=== PATIENT | female | born 1990 | race African-American/Black ===

== ENCOUNTER 2024-02-07 13:22 | Emergency (ER) | payer OTHER ==
[2024-02-07 13:29] VITALS: BP 119/66; PULSE 78; RESP 18; TEMP 97.4; BMI 25.8
[2024-02-07 16:47] LABS: BASO % 0.5 % (0-2.0); EOS % 1.1 % (0-4.5); HEMATOCRIT 32.4 % (32.4-45.2); HEMOGLOBIN 10.6 GM/dL (10.7-15.3); LYMPH % 32.8 % (8-40); MCH 26.8 pg (25.7-33.7); MCHC 32.9 g/dl (32.0-36.0); MEAN CELL VOLUME 81.6 fl (80-96); MEAN PLT VOLUME 7.1 fl (7.5-11.1); MONO % 7.9 % (3.8-10.2); NEUT % 57.7 % (42.8-82.8); PLATELET COUNT 231 10^3/uL (134-434); RBC 3.97 M/mm3 (3.60-5.2); WHITE BLOOD COUNT 6.5 K/mm3 (4.0-10.0)
[2024-02-07 17:00] LABS: CALCIUM 8.9 mg/dL (8.5-10.1)
[2024-02-07 17:01] LABS: ALBUMIN 3.5 g/dl (3.4-5.0); BLOOD UREA NITROGEN 11.3 mg/dL (7-18)
[2024-02-07 17:04] LABS: CREATININE 0.6 mg/dL (0.55-1.3)
[2024-02-07 17:06] LABS: BILIRUBIN,TOTAL 0.3 mg/dL (0.2-1)
[2024-02-07 18:00] LABS: PH,URINE 7.5 (5.0-8.0); URINE APPEARANCE CLEAR; URINE BILIRUBIN NEGATIVE (NEGATIVE); URINE COLOR YELLOW; URINE GLUCOSE (UA) NEGATIVE (NEGATIVE); URINE KETONE TRACE (NEGATIVE); URINE LEUK ESTERASE NEGATIVE (NEGATIVE); URINE NITRITE NEGATIVE (NEGATIVE); URINE PROTEIN TRACE (NEGATIVE)
[2024-02-07] MEDS ORDERED: ACETAMINOPHEN 500 MG TABLET (FP) ONE (18:16)
[2024-02-07] MEDS: ACETAMINOPHEN 500 MG TABLET (FP) PO ONE (18:18)
[2024-02-07 18:34] LABS: HCG,QUALITATIVE URINE Positive
== END 2024-02-07 22:20 | disposition home or self-care (01) ==
LOC: JER 13:22
DX: O26.891 Other specified pregnancy related conditions, first trimester (principal); R10.9 Unspecified abdominal pain; O99.611 Diseases of the digestive system complicating pregnancy, first trimester; K59.00 Constipation, unspecified; O99.891 Other specified diseases and conditions complicating pregnancy; R68.83 Chills (without fever); M79.10 Myalgia, unspecified site; R53.83 Other fatigue; Z3A.01 Less than 8 weeks gestation of pregnancy; Z20.822 Contact with and (suspected) exposure to COVID-19
CPT/HCPCS: 0241U-QW; 36415; 76801-TC; 80053; 81003; 84443; 84702; 84703; 85025; 87086; 99284-25

== ENCOUNTER 2024-09-23 10:20 | Inpatient (IN) | payer OTHER ==
[2024-09-23] MEDS: ELECTROLYTE-148 SOLN 1,000 ML IV SCH (10:45)
[2024-09-23] MEDS ORDERED: KETOROLAC TROMETHAMINE 30 MG/1 ML VIAL ONE (10:50)
[2024-09-23] MEDS ORDERED: DEXAMETHASONE SOD PHOSPHATE 4 MG/1 ML VIAL ONE (10:50)
[2024-09-23] MEDS ORDERED: OXYTOCIN 10 UNITS/ML VIAL ONE ×3 (10:50→12:51)
[2024-09-23] MEDS ORDERED: METOCLOPRAMIDE HCL INJECTION 10 MG/2 ML VIAL ONE (10:50)
[2024-09-23] MEDS ORDERED: SODIUM CHLORIDE 0.9% P/F 10 ML VIAL IJ ONE (10:50)
[2024-09-23] MEDS ORDERED: ONDANSETRON 4 MG/2 ML VIAL ONE ×3 (10:50→15:24)
[2024-09-23] MEDS ORDERED: ceFAZolin SODIUM 1 GM VIAL ONE (10:50)
[2024-09-23 11:37] VITALS: BMI 38.0
[2024-09-23] MEDS: CITRIC ACID/SODIUM CITRATE 30 ML UNIT-DOSE CUP PO ONE (11:45)
[2024-09-23] MEDS ORDERED: FENTANYL CITRATE/PF 50 MCG/ML VIAL ONE (11:59)
[2024-09-23] MEDS ORDERED: morphine SULFATE (PF) 1 MG/2 ML SYRINGE ONE (11:59)
[2024-09-23 13:15] LABS: CORD BASE EXCESS -3.8 mmol/L (0-2); CORD HCO3 24.7 mmHg (20-29); CORD PCO2 58.6 mmHg (30-78); CORD pH 7.242 (7.14-7.44)
[2024-09-23 13:16] LABS: CORD HCO3 24.8 mmHg (20-29); CORD PCO2 85.1 mmHg (30-78); CORD pH 7.083 (7.14-7.44)
[2024-09-23] MEDS ORDERED: oxyCODONE HCL 5 MG TABLET PO PRN (13:27)
[2024-09-23] MEDS: morphine SULFATE/PF 1 MG/2 ML (2cc Syringe - QUVA) EP ONE (15:24)
[2024-09-23] MEDS: ONDANSETRON 4 MG/2 ML VIAL IVPB PRN (15:30)
[2024-09-23] MEDS ORDERED: OXYTOCIN 20 UNITS in 0.9% NS 20 UNIT/1,000 ML INFUS.BAG IV ONE (16:45)
[2024-09-23] MEDS: IBUPROFEN 800 MG/8 ML IJ IVPB SCH (17:23)
[2024-09-23] MEDS: ACETAMINOPHEN 1000 MG/100 ML BAG IVPB SCH (17:54)
[2024-09-23] MEDS: CEFAZOLIN SODIUM 2 GM in DEXTROSE 5%-WATER 100 ML IVPB SCH (19:02)
[2024-09-23] MEDS: SENNOSIDES/DOCUSATE COMBO (SENNA PLUS) TABLET (UD) PO SCH (22:20)
[2024-09-24 07:51] LABS: BASO % 0.2 % (0-2.0); EOS % 0.9 % (0-4.5); HEMATOCRIT 34.7 % (32.4-45.2); HEMOGLOBIN 11.3 GM/dL (10.7-15.3); LYMPH % 15.4 % (8-40); MCHC 32.6 g/dl (32.0-36.0); MEAN CELL VOLUME 83.1 fl (80-96); MEAN PLT VOLUME 7.8 fl (7.5-11.1); MONO % 7.6 % (3.8-10.2); NEUT % 75.9 % (42.8-82.8); PLATELET COUNT 233 10^3/uL (134-434); RBC 4.18 M/mm3 (3.60-5.2); RDW 20.2 % (11.6-15.6)
[2024-09-24] MEDS: SIMETHICONE 80 MG TAB.CHEW (FP) PO PRN (09:38)
[2024-09-24] MEDS: ENOXAPARIN NA (PORCINE) 40 MG/0.4 ML DISP.SYRIN SQ SCH (09:38)
[2024-09-24] MEDS: FERROUS SO4 325 MG TABLET (FP) PO SCH (09:38)
[2024-09-24] MEDS: FLU VACCINE (FLULAVAL) PF 45 MCG/0.5 ML SYRINGE 2024-2025 IM ONE (13:00)
[2024-09-24] MEDS: ACETAMINOPHEN 325 MG TABLET (FP) PO SCH (17:27)
[2024-09-24] MEDS: BISACODYL 10 MG SUPP.RECT RC PRN (17:30)
[2024-09-24] MEDS: OXYTOCIN 20 UNITS in 0.9% NS 20 UNIT/1,000 ML INFUS.BAG IV SCH (20:40)
[2024-09-24] MEDS: IBUPROFEN 600 MG TABLET (FP) PO PRN (21:34)
[2024-09-26 22:21] VITALS: RESP 18
[2024-09-27] MEDS ORDERED: DOCUSATE SODIUM 100 MG CAPSULE (FP) PO PRN (07:38)
[2024-09-27 10:42] VITALS: BP 139/80; PULSE 90; TEMP 98.2
== END 2024-09-27 17:45 | disposition home or self-care (01) | DRG 540 ==
LOC: JLDR 10:20 → J3W 16:59
PROVIDERS: ADMIT Obstetrics & Gynecology; ATTEND Obstetrics & Gynecology
PROC: 10D00Z1 Extraction of Products of Conception, Low, Open Approach (ICD-10-PCS; principal; 2024-09-23)
DX: O48.0 Post-term pregnancy (principal); Z3A.40 40 weeks gestation of pregnancy; O32.2XX0 Maternal care for transverse and oblique lie, not applicable or unspecified; O36.63X0 Maternal care for excessive fetal growth, third trimester, not applicable or unspecified; Z37.0 Single live birth
CPT/HCPCS: 36415; 36600; 82803; 85025; 86850; 86900; 86901; 88307-TC; 90656; G0008; J0131